=== PATIENT | male | born 1940 | race African-American/Black ===

== ENCOUNTER 2023-01-16 17:10 | Inpatient (IN) | payer OTHER ==
[~2023-01-16] VITALS: Ht 162.6 cm; Wt 83.9 kg
[2023-01-16] MEDS ORDERED: METFORMIN HCL500 M3 PO (17:23)
[2023-01-16] MEDS ORDERED: PROTONIX20 MG PO (17:23)
[2023-01-16] MEDS ORDERED: ISOSORBIDE DINI30 MG PO (17:23)
[2023-01-16] MEDS ORDERED: PLAVIX75 MG PO (17:24)
[2023-01-16] MEDS ORDERED: TENORMIN50 M1 PO (17:24)
[2023-01-16] MEDS ORDERED: ENALAPRIL MALE2.5 MG PO (17:24)
[2023-01-16] MEDS ORDERED: SIMVASTATIN5 MG PO (17:24)
--- NOTE | 2023-01-16 17:25 | NUR ---
SE RECIBE PTE ALERTA EN COMPANIA DE SOMARIE (HIJA) QUIEN REFIERE GIMENEZ PRESENTA DISVIACION EN COMISURA DE LABIOS. PTE NO PRESENTA DIFICULTAD EN MOVIMIENTO DE EXTREMIDADES Y LEVE CAIDA DE LABIO INFERIOR LADO IZQ. SE WYATT S/V, S EREALZIA EKG Y SE PRESENTA .
--- NOTE | 2023-01-16 18:30 | NUR ---
SE EDUCA A FAMILIAR DE PTE SOBRE TX MEDICO. SE WYATT MUESTRAS DE LABORATORIO UTILIZANDO MEDIDAS ASEPTICAS. SE COLOCA H/L SHE DE EDEMA. SE ADMINISTRAN MEDICAMENTOS LOS CUALES TOLERA. SE NOTIFICA ESTUDIO DE CT Y RX PENDIENTES A REALIZAR. SE CATETERIZA A PTE IRMA ORDEN MEDICA, SE BRANDI MUESTRA DE UA.
== END 2023-01-23 15:00 | disposition home or self-care (01) | DRG 177 ==
LOC: ER 17:10 → ICU-2 22:16 → SEC-K 01-22 20:20 → MEDJ 01-23 14:29 → SEC-K 01-23 14:35
PROVIDERS: General Practice; Internal Medicine Infectious Disease; Internal Medicine Nephrology; ADMIT Internal Medicine; ATTEND Internal Medicine
PROC: BW28ZZZ Computerized Tomography (CT Scan) of Head (ICD-10-PCS; 2023-01-16)
PROC: B24BYZZ Ultrasonography of Heart with Aorta using Other Contrast (ICD-10-PCS; 2023-01-16)
PROC: B325YZZ Computerized Tomography (CT Scan) of Bilateral Common Carotid Arteries using Other Contrast (ICD-10-PCS; 2023-01-16)
PROC: 8E0ZXY6 Isolation (ICD-10-PCS; principal; 2023-01-17)
PROC: BW24ZZZ Computerized Tomography (CT Scan) of Chest and Abdomen (ICD-10-PCS; 2023-01-17)
PROC: XW033E5 Introduction of Remdesivir Anti-infective into Peripheral Vein, Percutaneous Approach, New Technology Group 5 (ICD-10-PCS; 2023-01-18)
DX: U07.1 COVID-19 (principal); I21.4 Non-ST elevation (NSTEMI) myocardial infarction; G45.9 Transient cerebral ischemic attack, unspecified; I82.409 Acute embolism and thrombosis of unspecified deep veins of unspecified lower extremity; I10 Essential (primary) hypertension; R77.8 Other specified abnormalities of plasma proteins; G30.9 Alzheimer's disease, unspecified; F02.80 Dementia in other diseases classified elsewhere, unspecified severity, without behavioral disturbance, psychotic disturbance, mood disturbance, and anxiety; R09.02 Hypoxemia